=== PATIENT | male | born 1950 | race Caucasian/White ===

== ENCOUNTER 2020-08-14 16:36 | Emergency (ER) | payer MEDICARE, SELFPAY ==
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
--- NOTE | ~2020-08-14 | XR_ITS ---
EXAMINATION: XR shoulder LT min 2V EXAM DATE: 08/14/2020 17:04 INDICATION: Initial encounter following injury, with pain of the left shoulder. TECHNIQUE: The following left shoulder projections obtained: frontal projection with internal rotatio n, frontal projection with external rotation, Grashey, and scapular Y view (4+ views). There is no p rior study for comparison. FINDINGS: For the projections has mildly widened appearing left acromioclavicular joint space, possib ly indicating ligamentous injury. Is there point tenderness at this location? 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 There are no acute fractures identified. No radiopaque foreign bodies id entified. IMPRESSION: Mildly wide appearing left acromioclavicular joint, could be normal for this patient but check for point tenderness. Mild osteoarthritis. Reviewed, dictated and finalized at location A.
[2020-08-14 16:39] VITALS: BP 170/90; PULSE 70; RESP 18; TEMP 36.3; O2SAT 100
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
[2020-08-14] MEDS: TETANUS,DIPHTHERIA,AC PERTUSSIS ADULT (0.5 ML) BOOSTRIX IM (18:03)
== END 2020-08-14 18:41 | disposition home or self-care (01) ==
PROVIDERS: Emergency Provider General Practice; PCP Family Medicine
DX: S43.102A Unspecified dislocation of left acromioclavicular joint, initial encounter (principal); S22.42XA Multiple fractures of ribs, left side, initial encounter for closed fracture; M19.012 Primary osteoarthritis, left shoulder; V18.4XXA Pedal cycle driver injured in noncollision transport accident in traffic accident, initial encounter; Y93.55 Activity, bike riding; Z23 Encounter for immunization
CPT/HCPCS: 71101; 73030; 90471; 90714; 90715; 99284; A4565

== ENCOUNTER 2020-10-21 09:30 | Outpatient (RCR) | payer MEDICARE, SELFPAY ==
[2020-09-04 07:33] VITALS: BP_SYST 170
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
== END 2020-10-21 14:15 | disposition home or self-care (01) ==
LOC: ANHPT 09:30
PROVIDERS: PCP Family Medicine; Visit Provider Orthopaedic Surgery
DX: S43.109D Unspecified dislocation of unspecified acromioclavicular joint, subsequent encounter (principal)
CPT/HCPCS: 97110; 97140

== ENCOUNTER → 2023-03-07 08:43 | Outpatient (CLI) | payer MEDICARE, SELFPAY ==
--- NOTE | ~2023-03-07 | XR_ITS ---
Clinical Indication: Shortness of breath PA and lateral views of the chest: Comparison: 07/10/2013 Findings: The lungs are clear, without evidence of focal consolidation or pleural effusion. Cardiome diastinal silhouette is within normal limits. Bones and soft tissues are unremarkable. Impression: Normal chest. Reviewed, dictated and finalized at location . Impression: Normal chest.
== END ==
PROVIDERS: PCP Family Medicine; Visit Provider Family Medicine
DX: R06.02 Shortness of breath (principal)
CPT/HCPCS: 71046

== ENCOUNTER 2023-03-18 08:01 | Emergency (ER) | payer MEDICARE, SELFPAY ==
--- NOTE | ~2023-03-18 | XR_ITS ---
XR forearm RT 2V 03/18/2023 08:30 INDICATION: Left arm pain PROCEDURE: 2 views left forearm COMPARISON: No prior studies for comparison. FINDINGS: Fracture, dislocation or subluxation is not identified. The soft tissues appear within norm al limits. No foreign bodies are identified. IMPRESSION: 1: NO ACUTE BONE OR JOINT ABNORMALITY IDENTIFIED. Reviewed, dictated and finalized at location A.
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
[2023-03-18 08:17] VITALS: BP 146/79; PULSE 89; RESP 18; TEMP 36.4; O2SAT 98
== END 2023-03-18 08:44 | disposition home or self-care (01) ==
PROVIDERS: Emergency Provider Nurse Practitioner Family; PCP Family Medicine
DX: L03.113 Cellulitis of right upper limb (principal); N40.0 Benign prostatic hyperplasia without lower urinary tract symptoms; I10 Essential (primary) hypertension; J45.909 Unspecified asthma, uncomplicated
CPT/HCPCS: 73090; 99213; G0463

== ENCOUNTER → 2024-03-19 09:23 | Outpatient (CLI) | payer MEDICARE, SELFPAY ==
--- NOTE | ~2024-03-19 | XR_ITS ---
Lumbosacral Spine: AP, oblique, and lateral views Clinical History: Pain Findings: The normal lordotic curve is maintained. The vertebral bodies and posterior elements are i ntact. There is advanced degenerative disc narrowing at L5-S1. There is moderate facet arthropathy th roughout the lumbar spine. The sacroiliac joints are normally outlined. Impression: Moderate degenerative spondylosis, as above. Reviewed, dictated and finalized at location M. Impression: Moderate degenerative spondylosis, as above.
--- NOTE | ~2024-03-19 | XR_ITS ---
AP view of the pelvis and AP and lateral views of the right hip Clinical history: Pain Findings: No acute fracture or dislocation is seen. Osseous alignment is anatomic. Bilateral hip and SI joint spaces are preserved. Soft tissues are unremarkable. Impression: No significant abnormality is seen. Reviewed, dictated and finalized at [facility]. Impression: No significant abnormality is seen.
== END ==
PROVIDERS: PCP Family Medicine; Visit Provider Family Medicine
DX: M47.896 Other spondylosis, lumbar region (principal)
CPT/HCPCS: 72110; 73502

== ENCOUNTER 2025-01-03 08:48 | Outpatient (CLI) | payer MEDICARE, SELFPAY | END 2025-01-03 08:49 | disposition home or self-care (01) | LOC: MICIMG 08:48 | PROVIDERS: PCP Family Medicine; Visit Provider Family Medicine | DX: N62 Hypertrophy of breast (principal) | CPT/HCPCS: 76642; 77061; 77065; G0279 ==